=== PATIENT | male | born 1990 | race Caucasian/White ===

== ENCOUNTER 2019-05-05 09:51 | Emergency (ER) | payer BC, SELFPAY ==
[2019-05-05 10:00] VITALS: BP 154/84; PULSE 97; RESP 18; TEMP 37.3; O2SAT 99
--- NOTE | 2019-05-05 10:09 | ED.URI ---
HPI - URI/Sore Throat General Chief Complaint: Upper Respiratory Infection Stated Complaint: sinus infection Time Seen by Provider: 05/05/19 10:05 Source: patient and RN notes reviewed Mode of arrival: ambulatory Limitations: no limitations History of Present Illness HPI Narrative: Patient presents today with a 10-day history of hoarseness, copious postnasal drip, nasal congestion and sinus pressure, ear clogging. 2-day history of headache. Reports sore throat initially, but this has resolved. He does report history of severe seasonal allergies for which he takes Zyrtec daily. He is also been taking Mucinex for symptoms with mild relief. MD elicited complaint: nasal congestion and sinus pain Related Data Allergies Allergy/AdvReac Type Severity Reaction Status Date / Time No Known Allergies Allergy Verified 05/05/19 10:06 Review of Systems Review of Systems: Narrative: CONSTITUTIONAL: Denies body aches, fever, chills, or sweats. EYES: Denies visual changes, redness, or discharge. ENT: Denies rhinorrhea, sore throat, or otalgia.+Congestion, postnasal drip, hoarseness, ear clogging, sinus pressure CARDIOVASCULAR: Denies chest pain, palpitations, or edema. RESPIRATORY: Denies dyspnea.+Mild cough GASTROINTESTINAL: Denies abdominal pain, nausea, vomiting, or diarrhea. GENITOURINARY: Denies dysuria or hematuria. SKIN: Denies rash, itching, or wounds. MUSCULOSKELETAL: Denies back pain, joint pain, or myalgia. NEUROLOGIC: Denies headache, numbness, tingling, or weakness. PSYCH: Denies depression or anxiety. PMFSH Comments At time of signature, I have reviewed and agree with nursing past medical, surgical, social and family history unless otherwise noted. Please see nursing chart for further information. There is no relevant family history pertinent to the presenting complaint Exam Narrative: Exam Narrative: GENERAL: Well-appearing, well-nourished, and in no acute distress. HEAD: Normocephalic, atraumatic. EYES: EOMI. No redness or drainage. Conjunctivae normal. ENT: Mucous membranes pink and moist. Nares Congested. No rhinorrhea. No sinus tenderness. Copious purulent postnasal drainage.TMs normal bilaterally. Throat normal. Uvula midline. NECK: Normal AROM. Supple. No lymphadenopathy. CHEST: No respiratory distress. Clear to auscultation. HEART: Regular rate and rhythm. No murmur appreciated. Normal peripheral pulses. EXTREMITIES: Normal range of motion. No edema. SKIN: Warm, dry, no rash. NEURO: No focal deficits. Alert and oriented x3. Gait steady. PSYCH: Normal affect. No signs of depression or anxiety. Course Vital Signs Vital signs: Vital Signs Temperature 99.1 F 05/05/19 10:00 Pulse Rate 97 05/05/19 10:00 Respiratory Rate 18 05/05/19 10:00 Blood Pressure 154/84 H 05/05/19 10:00 Pulse Oximetry 99 05/05/19 10:00 Temperature 99.1 F 05/05/19 10:00 Pulse Rate 97 05/05/19 10:00 Respiratory Rate 18 05/05/19 10:00 Blood Pressure 154/84 H 05/05/19 10:00 Pulse Oximetry 99 05/05/19 10:00 Reviewed. Pt has been instructed to follow up with his PCP regarding his elevated blood pressure today. MDM - URI/Sore Throat Differential Diagnosis Differential diagnosis: Likely upper respiratory infection, otitis media, sinusitis, viral infection, pharyngitis and other (Allergic rhinitis) Critical Care Time Critical Care Time Critical Care Time: No Discharge Plan Discharge Clinical Impression: Sinusitis Qualifiers: Sinusitis location: unspecified location Chronicity: acute Recurrence: not specified as recurrent Qualified Code(s): J01.90 - Acute sinusitis, unspecified Patient Disposition: Home, Self-Care Condition: Stable Instructions: Antibiotic Form, Sinusitis (ED) Additional Instructions: Please take the amoxicillin as prescribed until gone. Consider a decongestant such as Sudafed to help with the sinus pressure. Continue the Zyrtec. Follow-up with your doctor in 1 week
== END 2019-05-05 10:16 | disposition home or self-care (01) ==
PROVIDERS: Emergency Provider Nurse Practitioner; PCP Internal Medicine Infectious Disease
DX: J01.90 Acute sinusitis, unspecified (principal)
CPT/HCPCS: 99203; G0463

== ENCOUNTER 2020-08-08 16:13 | Emergency (ER) | payer BC, SELFPAY ==
--- NOTE | ~2020-08-08 | XR_ITS ---
EXAMINATION: XR foot LT min 3V DATE: 08/08/2020 16:31 INDICATION: Left foot injury. TECHNIQUE: 4 views of left foot were obtained. COMPARISON: None. FINDINGS: Bone alignment is normal. No fracture. There is mild osteoarthritis of first metatarsophala ngeal joint. IMPRESSION: 1. Mild osteoarthritis of first metatarsophalangeal joint. Reviewed, dictated and finalized at location A.
[2020-08-08 16:18] VITALS: BP 140/90; PULSE 75; RESP 14; TEMP 37; O2SAT 99
[2020-08-08 16:26] VITALS: BP 140/90; PULSE 75; RESP 14; TEMP 37; O2SAT 99
--- NOTE | 2020-08-08 16:42 | ED.LOWEXIN ---
HPI - Extremity Injury (Lower) General Chief Complaint: Extremity Injury, Lower Stated Complaint: lt foot swollen History of Present Illness HPI Narrative: This is a 30-year-old male that comes in complaining rolling his ankle and foot patient states that is painful to walk Related Data Home Medications Medication Instructions Recorded Confirmed sumatriptan succinate 50 mg PO ONCE PRN 08/08/20 08/08/20 Allergies Allergy/AdvReac Type Severity Reaction Status Date / Time No Known Allergies Allergy Verified 08/08/20 16:25 Review of Systems Review of Systems: Narrative: CONSTITUTIONAL: Denies fever, chills, or sweats. EYES: Denies visual changes, redness, or discharge. ENT: Denies rhinorrhea, congestion, sore throat, or otalgia. CARDIOVASCULAR:Denies chest pain, palpitations, or edema. RESPIRATORY: Denies cough or dyspnea. GASTROINTESTINAL: Denies abdominal pain, nausea, vomiting, or diarrhea. GENITOURINARY: Denies dysuria or hematuria. SKIN:[Denies rash or itching. MUSCULOSKELETAL:Denies back pain, reports left foot joint pain, or myalgia. NEUROLOGIC: Denies headache, numbness, or weakness. PSYCHIATRIC:Denies anxiety or depression PMFSH Comments At time as signature, I have reviewed and agree with nursing past medical, social, surgical and family history. Please see nursing chart for further information. There is no relevant family history pertinent to the presenting complaint. Exam Narrative: Exam Narrative: GENERAL:Well-appearing, well-nourished, and in no acute distress. HEAD:Normocephalic, atraumatic. EYES: PERRLA and EOMI. ENT: Nares clear, no rhinorrhea or epistaxis. Mucous membranes moist. NECK: Supple. CHEST: Clear to auscultation. No respiratory distress. HEART: Regular rate and rhythm. Normal peripheral pulses. ABDOMEN: Soft, nontender, nondistended, normal active bowel sounds. EXTREMITIES: Decreased range of motion due to pain. Left ankle edema. SKIN: Warm, dry, no rash. NEURO: No focal deficits. Alert and oriented x3. Course Vital Signs Vital signs: Vital Signs Temperature 98.6 F 08/08/20 16:18 Pulse Rate 75 08/08/20 16:18 Respiratory Rate 14 08/08/20 16:18 Blood Pressure 140/90 08/08/20 16:18 Pulse Oximetry 99 08/08/20 16:18 Temperature 98.6 F 08/08/20 16:26 Pulse Rate 75 08/08/20 16:26 Respiratory Rate 14 08/08/20 16:26 Blood Pressure 140/90 08/08/20 16:26 Pulse Oximetry 99 08/08/20 16:26 MDM - Extremity Injury (Lower) MDM Narrative Medical decision making narrative: Reviewed x-rays no acute fractures Differential Diagnosis Differential diagnosis: Likely ankle sprain and strain, fracture of hip, fracture of toe and ankle fracture Discharge Plan Discharge Clinical Impression: Foot sprain Qualifiers: Encounter type: initial encounter Laterality: left Qualified Code(s): S93.602A - Unspecified sprain of left foot, initial encounter Patient Disposition: Home, Self-Care Condition: Stable Instructions: Antibiotic Form, Foot Sprain (ED) Additional Instructions: Avoid weight bearing until the pain subsides. Ice to the area 20-30 minutes 4-6 times a day Elevate above heart Elastic wrap or orthopedic splint as directed for comfort for the next 5-7 days Crutches as directed if needed Tylenol for lesser pain Ibuprofen regularly for the next 2-3 days for the inflammation Follow up with your primary care provider if the condition is not improving within 1 week or sooner if the condition worsens with numbness, tingling, decrease sensation with weakness to seek ER. Prescriptions: New ibuprofen 600 mg tablet 600 mg PO TID PRN (Reason: pain) Qty: 20 RF: 0 No Action sumatriptan succinate 50 mg Tablet 50 mg PO ONCE PRN (Reason: Migraine Headache) RF: 0 Follow-up/Referrals: Fahad,Chino Jerez MD [Primary Care Provider] - Stand Alone Forms: Work/School Release IP Time of Disposition: 16:44
== END 2020-08-08 16:54 | disposition home or self-care (01) ==
PROVIDERS: Emergency Provider Nurse Practitioner Family; PCP Internal Medicine Infectious Disease
DX: S93.602A Unspecified sprain of left foot, initial encounter (principal); X50.0XXA Overexertion from strenuous movement or load, initial encounter
CPT/HCPCS: 73630; 99213; G0463

== ENCOUNTER 2021-07-04 11:55 | Emergency (ER) | payer BC, SELFPAY ==
[2021-07-04 12:00] VITALS: BP 141/98; PULSE 112; RESP 14; TEMP 36.2; O2SAT 98
[2021-07-04 12:15] VITALS: BP 105/60
--- NOTE | 2021-07-04 12:25 | ED.SKABFB ---
HPI - Skin/Abscess/Foreign Bdy General Chief complaint: Skin/Abscess/Foreign Body Stated complaint: Skin Sore/Finger Time Seen by Provider: 07/04/21 12:20 Source: patient, RN notes reviewed and old records reviewed Mode of arrival: ambulatory Limitations: no limitations History of Present Illness HPI narrative: 31-year-old male who presents to express care with complaints of swelling redness and purulent drainage along the left middle finger nail for the past 4 days. Patient reports biting nails has inflamed red paronychia noted to the dorsal ulnar aspect of distal nail of left middle finger with pain rated 8/ 10 especially with palpation of skin area. She reports no fevers chills or sweats has been fully vaccinated for COVID and flu shot taken also. Patient reports he is unsure about his last tetanus shot will update while in clinic. MD complaint: abscess/boil and other (Paronychia) Onset (ago): day(s) (For) Location: L hand (Due to finger) Severity: severe Severity scale (1-10): 8 Pain Consistency: constant Treatments prior to arrival: attempted to drain pus at home Related Data Home Medications Medication Instructions Recorded Confirmed sumatriptan succinate 100 mg PO ONCE 07/04/21 07/04/21 Allergies Allergy/AdvReac Type Severity Reaction Status Date / Time No Known Allergies Allergy Verified 07/04/21 12:02 Review of Systems Review of Systems: CONSTITUTIONAL: Denies fever, chills, or sweats. EYES: Denies visual changes, redness, or discharge. ENT: Denies rhinorrhea, congestion, sore throat, or otalgia. CARDIOVASCULAR: Denies chest pain, palpitations, or edema. RESPIRATORY: Denies cough or dyspnea. GASTROINTESTINAL: Denies abdominal pain, nausea, vomiting, or diarrhea. GENITOURINARY: Denies dysuria or hematuria. SKIN: Denies rash or itching. MUSCULOSKELETAL: Denies back pain, joint pain, or myalgia. NEUROLOGIC: Denies headache, numbness, or weakness. PSYCHIATRIC: Denies anxiety or depression. All systems reviewed & are unremarkable except as noted in HPI and below PMFSH Past Medical History Medical History (Updated 07/04/21 @ 12:51 by Maribel Guerrero NP) Hx of migraines Social History Social History (Updated 07/04/21 @ 12:31 by Maribel Guerrero NP) Smoking status: Never smoker Substance use type: does not use Living arrangements: with family Gender identity (if verbalized by the patient): Male Comments At time of signature, agree with nursing past medical, surgical, social and family history. There is no relevant family history pertinent to the presenting complaint Exam Narrative: GENERAL: Well-appearing, well-nourished, and in no acute distress. HEAD: Normocephalic, atraumatic. EYES: PERRLA and EOMI. ENT: Nares clear, no rhinorrhea or epistaxis. Mucous membranes moist.TM's normal with good light reflex, throat pink with no lesions or exudates no tonsil swelling NECK: Supple. no lymphadenopathy CHEST: Clear to auscultation. No respiratory distress.SAO2 98% on room air HEART: Regular rate and rhythm. No murmur heard. Normal peripheral pulses. ABDOMEN: Soft, nontender, nondistended, normal active bowel sounds. EXTREMITIES: Normal range of motion. No edema. SKIN: Warm, dry, no rash. swollen red and tender skin to the ulnar side of left middle fingernail with some purulent drainage noted. NEURO: No focal deficits. Alert and oriented x3. Course Course Level of Care: Express Care Visit Vital Signs Vital signs: Vital Signs Temperature 36.2 C L 07/04/21 12:00 Pulse Rate 112 H 07/04/21 12:00 Respiratory Rate 14 07/04/21 12:00 Blood Pressure 141/98 H 07/04/21 12:00 Pulse Oximetry 98 07/04/21 12:00 Temperature 36.2 C L 07/04/21 12:00 Pulse Rate 112 H 07/04/21 12:00 Respiratory Rate 14 07/04/21 12:00 Blood Pressure 141/98 H 07/04/21 12:00 Pulse Oximetry 98 07/04/21 12:00 Procedures Abscess I/D Left middle finger: Date of Incision: 07/04/21 T
[2021-07-04 12:50] VITALS: BP 120/78
[2021-07-04] MEDS: TETANUS,DIPHTHERIA,AC PERTUSSIS ADULT (0.5 ML) BOOSTRIX IM (12:51)
== END 2021-07-04 13:18 | disposition home or self-care (01) ==
PROVIDERS: Emergency Provider Registered Nurse; PCP Internal Medicine Infectious Disease
DX: L03.012 Cellulitis of left finger (principal); Z23 Encounter for immunization
CPT/HCPCS: 10160; 90471; 90715; 99203; G0463

== ENCOUNTER 2022-02-13 11:59 | Emergency (ER) | payer BC, SELFPAY ==
[2022-02-13 12:07] VITALS: BP 130/78; PULSE 86; RESP 14; TEMP 36.6; O2SAT 98
--- NOTE | 2022-02-13 19:35 | PC.NURSE ---
1245 prior to triage staff observed pt in [place] and leaving building. not assessed by rn/analysis mgr.
== END 2022-02-13 12:45 | disposition left against medical advice (07) ==
PROVIDERS: Emergency Provider Registered Nurse; PCP Internal Medicine Infectious Disease
DX: Z53.21 Procedure and treatment not carried out due to patient leaving prior to being seen by health care provider (principal)
CPT/HCPCS: 99199